=== PATIENT | female | born 1965 | race Caucasian/White ===

== ENCOUNTER → 2019-04-25 10:44 | Outpatient (CLI) | payer OTHER, SELFPAY ==
--- NOTE | 2019-04-25 10:48 | DI.MG.S_ITS ---
BILATERAL DIGITAL SCREENING MAMMOGRAM 3D/2D WITH CAD: 04/25/2019 CLINICAL: Routine screening. Comparison is made to exams dated: 05/18/2017 mammogram - [facility], 07/18/2014 stereotactic biopsy, and 07/10/2014 mammogram - [facility]. The tissue of both breasts is heterogeneously dense. This may lower the sensitivity of mammography. Current study was also evaluated with a Computer Aided Detection (CAD) system. There is a benign biopsy clip in the left breast. No significant masses, calcifications, or other findings are seen in either breast. There has been no significant interval change. IMPRESSION: NEGATIVE There is no mammographic evidence of malignancy. A 1 year screening mammogram is recommended. This exam was interpreted at Station ID: [id number]. NOTE: For mammograms, a report in lay terms will be sent to the patient. Approximately 15% of breast malignancies will not be visualized mammographically. In the management of a palpable breast mass, a negative mammogram must not discourage biopsy of a clinically suspicious lesion. Electronically Signed By: Sharyn rebollar/ronaldo:04/25/2019 11:31:02 letter sent: Normal Exam ACR BI-RADS Category 1: Negative 3341F
== END ==
PROVIDERS: PCP Physician Assistant; Visit Provider Physician Assistant
DX: Z12.31 Encounter for screening mammogram for malignant neoplasm of breast (principal)
CPT/HCPCS: 77063; 77067

== ENCOUNTER → 2020-04-26 08:56 | Outpatient (CLI) | payer OTHER, SELFPAY ==
[2020-04-26 09:32] LABS: Add Manual Diff / Slide Review NO; Basophils Absolute Auto 0 /uL (0-100); Basophils Percent Auto 0.6 % (0-2); Eosinophils Absolute Auto 200 /uL (0-450); Eosinophils Percent Auto 2.3 % (2-4); Hematocrit 41.8 % (36-46); Hemoglobin 14.3 g/dL (12.0-16.0); Lymphocytes Absolute Auto 1700 /uL (1100-4500); Lymphocytes Percent Auto 25.1 % (25-40); Mean Corpuscular HGB Conc 34.2 % (30-36); Mean Corpuscular Hemoglobin 29.4 PG (26-34); Monocytes Absolute Auto 500 /uL (0-900); Neutrophils Absolute Auto 4300 /uL (1500-7000); Platelet Count 220 X10^3/uL (150-400); Red Blood Cell Count 4.86 X10^6/uL (4.0-5.2); Red Cell Distribution Width 12.7 % (11.6-14.8); White Blood Cell Count 6.8 X10^3/uL (4.5-11.0)
[2020-04-26 10:10] LABS: Free T3, Triiodothyronine Free 3.83 pg/mL (2.77-5.27); Free T4, Direct Thyroxine 0.95 ng/dL (0.78-2.19)
[2020-04-26 10:24] LABS: Thyroid Stimulating Hormone 1.76 uIU/mL (0.47-4.68)
== END ==
PROVIDERS: PCP Nurse Practitioner; Referring Provider Nurse Practitioner; Visit Provider Nurse Practitioner
DX: E03.9 Hypothyroidism, unspecified (principal); E78.5 Hyperlipidemia, unspecified; I10 Essential (primary) hypertension
CPT/HCPCS: 36415; 84439; 84443; 84481; 85025

== ENCOUNTER → 2020-05-03 08:52 | Outpatient (CLI) | payer OTHER, SELFPAY ==
--- NOTE | 2020-05-03 08:53 | DI.US.S_ITS ---
PROCEDURE: US PELVIC COMPLETE INDICATIONS: UTERINE PROLAPSE TECHNIQUE: Real-time scanning was performed of the pelvic organs, with image documentation. Additional endovaginal scanning was necessary due to incomplete visualization of the adnexal and endometrial structures by transabdominal scanning. COMPARISON: None. FINDINGS: Transabdominal scanning: Limited scanning through the kidneys shows no hydronephrosis. No pathologic free abdominal or pelvic fluid. Endovaginal scanning: Uterus: Uterus is normal in size at 6.5 x 4.0 x 4.7 cm. The endometrium measures one mm in combined thickness. Right posterior subserosal fibroid measuring 2.0 x 1.5 x 1.8 cm Ovaries: Right ovary measures 3.6 x 1.5 x 1.0 cm. Left ovary measures 2.8 x 1.5 x 1.4 cm. The ovaries are unremarkable bilaterally. IMPRESSION: Uterine fibroid Dictated by: Brett Forrest M.D. on 05/03/2020 at 12:47 Approved by: Brett Forrest M.D. on 05/03/2020 at 12:50
== END ==
PROVIDERS: PCP Nurse Practitioner; Referring Provider Nurse Practitioner; Visit Provider Nurse Practitioner
DX: N81.4 Uterovaginal prolapse, unspecified (principal); D25.2 Subserosal leiomyoma of uterus
CPT/HCPCS: 76830; 76856

== ENCOUNTER → 2020-06-08 15:34 | Outpatient (CLI) | payer OTHER, SELFPAY ==
[2020-06-09 18:23] LABS: COVID19 Sendout Not Detected (Not Detect)
== END ==
PROVIDERS: PCP Nurse Practitioner; Visit Provider Physician Assistant
DX: Z11.59 Encounter for screening for other viral diseases (principal)
CPT/HCPCS: 87635

== ENCOUNTER 2020-06-11 07:52 | Day surgery (SDC) | payer OTHER, SELFPAY ==
[2020-06-11] VITALS (8 sets, daily range): BP systolic 105–142; BP diastolic 73–99; PULSE 62–71; RESP 12–20; TEMP 35.7–36.6; O2SAT 96–100; BMI 25.4
--- NOTE | 2020-06-11 08:28 | PM.HP.1 ---
History of Present Illness History of Present Illness Date Patient Seen: 06/11/20 Time Patient Seen: 08:28 Chief complaint: SDC Narrative: The patient presents for colorectal sreening. They have never had any previous examination for such. No personal or family history of colon cancer. On further history denies any recent gastrointestinal symptoms. No nausea, vomiting, abdominal pain, loss of appetite, unexplained weight loss, change in bowel habits, diarrhea, constipation, melena, hematochezia, or bright red blood per rectum. Patient History Medical History (Updated 05/31/20 @ 16:13 by JOSEFINA Vivas) Colon cancer screening (Acute) Cystocele (Acute) Encounter for well woman exam with abnormal findings (Acute) Hyperlipidemia (Chronic) Hypertension (Chronic) Rosacea (Chronic 1999) Urinary frequency (Acute) Uterine prolapse (Acute) Surgical History Anesthesia (Resolved) History of appendectomy (Resolved) History of excision of mass (Resolved 2016) Family & Social History Family History Father No problems noted. Mother No problems noted. Brother No problems noted. Tobacco & Substance use: Smoking Status Never smoker alcohol intake former Meds Home Medications and Allergies Home Medications Medication Instructions Recorded Confirmed Type [Blood pressure cuff] ea #1 09/14/17 04/26/20 Rx multivitamin [Multiple Vitamins] 1 tab PO QDAY #0 09/14/17 05/29/20 History amlodipine 10 mg tablet 10 mg PO Q DAY #90 tab 12/22/19 05/29/20 Rx minocycline 100 mg tablet 100 mg PO DAILY #90 tab 01/31/20 05/29/20 Rx aspirin 81 mg tablet,delayed 81 mg PO 3XW PRN #0 tab 04/26/20 05/29/20 History release irbesartan 75 mg tablet 75 mg PO DAILY #90 tab 05/28/20 05/29/20 Rx Allergies Allergy/AdvReac Type Severity Reaction Status Date / Time No Known Allergies Allergy Uncoded 05/29/20 15:01 Review of Systems Review of Systems Narrative: A 10 point review of systems is negative except as noted in the HPI Exam Narrative Exam Narrative: General-no acute distress, well nourished HEENT-moist mucous membranes, no scleral icterus Neck-supple, no lymphadenopathy Chest- non labored respirations, clear to auscultation bilaterally Cardiac-regular rate no peripheral edema Abdomen-soft, nontender, non distended Extremities-warm, well perfused Neurological-alert and oriented, no focal deficits Assessment & Plan Assessment and plan (1) Colon cancer screening: Status: Acute Assessment & Plan narrative: The patient requires colorectal screening and colonoscopy is recommended. Technical details were discussed. Risks, benefits, alternatives explained. Risks including but not limited to myocardial infarction, aspiration, bleeding, pain, missed lesion, incomplete examination, need for further radiographic studies, colonic perforation, and need for major abdominal surgery were discussed. All questions were answered to their satisfaction, and they are in agreement with this plan.
[2020-06-11] MEDS: LACTATED RINGERS 1,000 ML 200 ML IV (08:35)
[2020-06-11] MEDS: MIDAZOLAM 5 MG/5 ML VIAL IV (08:50)
[2020-06-11] MEDS: fentaNYL 250 MCG/5 ML INJ IV (08:51)
--- NOTE | 2020-06-11 08:57 | PM.OP.ENDO ---
Operative Date/Time/Diagnoses Date of procedure: 06/11/20 Time of procedure: 08:57 Pre-op diagnosis: Screening colonoscopy Post-op diagnosis: same Procedure & Clinicians Study performed: Incomplete colonoscopy Same procedure as scheduled: Yes Indications: 55-year-old woman no prior colonoscopy presents for routine screening Procedure Notes SCOAP/Timeout: Performed Procedure in detail: Patient placed in left lateral recumbent position. Time out was performed. Procedural sedation was administered with Versed and Fentanyl. Examination began with a thorough inspection of the perianal area there was no evidence of fissures, fistulae, external hemorrhoids or cutaneous malignancy. The colonoscopy scope was then placed into the rectum the the lumen was insufflated with air. The scope was carefully advanced forward at the quality of the preparation was extremely poor and despite irrigating I was unable to adequately visualize wall colon. Procedure was aborted. Sedation minutes: 6 Specimen(s): none sent Complications: none Impression: Incomplete colonoscopy Post-procedure Recommendations: Other recommendation (Will need adequate preparation prior to next colonoscopy) Disposition: same day surgery
--- NOTE | 2020-06-11 09:24 | SUR.PHASEII ---
Drowsy, is having a procedure after her, so she wants to wait so that the ride can be called to take both of them home at the same time. She has water and is otherwise comfortable. Call light given.
--- NOTE | 2020-06-11 10:18 | SUR.PHASEII ---
Pt sleeping, resp unlabored.
== END 2020-06-11 10:55 | disposition home or self-care (01) ==
PROVIDERS: PCP Nurse Practitioner; Referring Provider Nurse Practitioner; Visit Provider Surgery
PROC: 0DJD8ZZ Inspection of Lower Intestinal Tract, Via Natural or Artificial Opening Endoscopic (ICD-10-PCS; CPT 45378; principal; 2020-06-11 09:15)
DX: Z12.11 Encounter for screening for malignant neoplasm of colon (principal); Z53.09 Procedure and treatment not carried out because of other contraindication
CPT/HCPCS: 45378; J2250; J3010

== ENCOUNTER → 2020-07-06 10:45 | Outpatient (CLI) | payer OTHER, SELFPAY ==
--- NOTE | 2020-07-06 11:15 | DI.ECHO.S_ITS ---
Patient Name: JOSE ROBERTO HOWELL date: 1965 Sex: F Attending Physician: Sang Indications: Date: 07/06/2020 10:48 At the request of: NINA WAYNE Procedure: MM screening mammo BI BILATERAL DIGITAL SCREENING MAMMOGRAM 3D/2D WITH CAD: 07/06/2020 CLINICAL: Routine screening. Comparison is made to exams dated: 04/25/2019 mammogram, 05/18/2017 mammogram - [facility], and 07/10/2014 mammogram - [facility]. The tissue of both breasts is heterogeneously dense. This may lower the sensitivity of mammography. Current study was also evaluated with a Computer Aided Detection (CAD) system. There is a biopsy clip in the left breast. No significant masses, calcifications, or other findings are seen in either breast. There has been no significant interval change. IMPRESSION: NEGATIVE There is no mammographic evidence of malignancy. A 1 year screening mammogram is recommended. This exam was interpreted at Station ID: [id number]. NOTE: For mammograms, a report in lay terms will be sent to the patient. Approximately 15% of breast malignancies will not be visualized mammographically. In the management of a palpable breast mass, a negative mammogram must not discourage biopsy of a clinically suspicious lesion. Electronically Signed By: Lefty Dyer M.D., jr/ronaldo:07/06/2020 13:58:56 letter sent: Normal Exam ACR BI-RADS Category 1: Negative 3341F
== END ==
PROVIDERS: PCP Nurse Practitioner; Referring Provider Nurse Practitioner; Visit Provider Nurse Practitioner
DX: Z12.31 Encounter for screening mammogram for malignant neoplasm of breast (principal)
CPT/HCPCS: 77063; 77067

== ENCOUNTER → 2020-07-13 10:02 | Outpatient (CLI) | payer OTHER, SELFPAY ==
[2020-07-16 10:02] LABS: COVID19 Sendout Not Detected (Not Detect)
== END ==
PROVIDERS: PCP Nurse Practitioner; Visit Provider Physician Assistant
DX: Z11.59 Encounter for screening for other viral diseases (principal)
CPT/HCPCS: 87635

== ENCOUNTER 2020-07-16 09:09 | Day surgery (SDC) | payer OTHER, SELFPAY ==
[2020-07-16] MEDS: LACTATED RINGERS 1,000 ML 200 ML IV ×2 (09:41→10:07)
[2020-07-16 09:44] VITALS: BP 139/86; PULSE 64; RESP 13; TEMP 36.8; O2SAT 99; BMI 25.7
--- NOTE | 2020-07-16 10:26 | P.HP_ITS ---
History of Present Illness History of Present Illness Date Patient Seen: 07/16/20 Time Patient Seen: 10:26 Chief complaint: [facility] [place] [facility] [place]arrative: 07/16-No interval changes in health. 06/11/20-The patient presents for colorectal sreening. They have never had any previous examination for such. No personal or family history of colon cancer. On further history denies any recent gastrointestinal symptoms. No nausea, vomiting, abdominal pain, loss of appetite, unexplained weight loss, change in bowel habits, diarrhea, constipation, melena, hematochezia, or bright red blood per rectum. Patient History Medical History (Updated 05/31/20 @ 16:13 by JOSEFINA Vivas) Colon cancer screening (Acute) Cystocele (Acute) Encounter for well woman exam with abnormal findings (Acute) Hyperlipidemia (Chronic) Hypertension (Chronic) Rosacea (Chronic 1999) Urinary frequency (Acute) Uterine prolapse (Acute) Surgical History Anesthesia (Resolved) History of appendectomy (Resolved) History of excision of mass (Resolved 2016) Family & Social History Family History Father No problems noted. Mother No problems noted. Brother No problems noted. Social History: household members spouse Tobacco & Substance use: Smoking Status Never smoker alcohol intake former Substance Use Type does not use Meds Home Medications and Allergies Home Medications Medication Instructions Recorded Confirmed Type [Blood pressure cuff] ea #1 09/14/17 04/26/20 Rx multivitamin [Multiple Vitamins] 1 tab PO QDAY #0 09/14/17 07/16/20 History minocycline 100 mg tablet 100 mg PO DAILY #90 tab 01/31/20 07/16/20 Rx aspirin 81 mg tablet,delayed 81 mg PO 3XW #0 tab 04/26/20 05/29/20 History release irbesartan 75 mg tablet 75 mg PO DAILY #90 tab 05/28/20 07/16/20 Rx Allergies Allergy/AdvReac Type Severity Reaction Status Date / Time No Known Allergies Allergy Uncoded 07/16/20 09:36 Review of Systems Review of Systems Narrative: A 10 point review of systems is negative except as noted in the HPI Exam Vital Signs (past 8 hours): - 07/16/20 09:44 Temperature 98.2 F Pulse Rate 64 Respiratory Rate 13 Blood Pressure 139/86 Pulse Oximetry 99 Oxygen Delivery Method Room Air Narrative Exam Narrative: General-no acute distress, well nourished HEENT-moist mucous membranes, no scleral icterus Neck-supple, no lymphadenopathy Chest- non labored respirations, clear to auscultation bilaterally Cardiac-regular rate no peripheral edema Abdomen-soft, nontender, non distended Extremities-warm, well perfused Neurological-alert and oriented, no focal deficits Assessment & Plan Assessment and plan (1) Colon cancer screening: Status: Acute Assessment & Plan narrative: The patient requires colorectal screening and colonoscopy is recommended. Technical details were discussed. Risks, benefits, alternatives explained. Risks including but not limited to myocardial infarction, aspiration, bleeding, pain, missed lesion, incomplete examination, need for further radiographic studies, colonic perforation, and need for major abdominal surgery were discussed. All questions were answered to their satisfaction, and they are in agreement with this plan. COVID-19 COVID-19 status: Negative
[2020-07-16] MEDS: fentaNYL 250 MCG/5 ML INJ IV (10:38)
[2020-07-16] MEDS: MIDAZOLAM 5 MG/5 ML VIAL IV (10:38)
--- NOTE | 2020-07-16 10:58 | PM.OP.ENDO ---
Operative Date/Time/Diagnoses Date of procedure: 07/16/20 Time of procedure: 10:58 Pre-op diagnosis: screening colonoscopy Post-op diagnosis: same Procedure & Clinicians Study performed: Colonoscopy Same procedure as scheduled: Yes Indications: 55-year-old woman here for a 1st routine screening colonoscopy Surgeon: Tony Tolentino Procedure Notes SCOAP/Timeout: Performed Procedure in detail: Patient placed in left lateral recumbent position. Time out was performed. Procedural sedation was administered with Versed and Fentanyl. Examination began with a thorough inspection of the perianal area there was no evidence of fissures, fistulae, external hemorrhoids or cutaneous malignancy. The colonoscopy scope was then placed into the rectum the the lumen was insufflated with air. The scope was carefully advanced forward. Ultimately the cecum was intubated and confirmed by identification of the ileocecal valve, the appendiceal orifice and the confluence of the taenia. The scope was then slowly withdrawn examining colon thoroughly in all directions. In the rectum the rectal columns were identified and retroflexion of the scope was performed for inspection of the distal rectum and anal canal. The colonoscopy was notable for the followin. Quality of the preparation-excellent 2. No masses polyps 3. Sigmoid diverticulosis Scope withdrawal time: 7 Sedation minutes: 20 Findings: diverticulosis Specimen(s): none sent Complications: none Impression: Normal colonoscopy Post-procedure Recommendations: Colonscopy in 10 years and High fiber diet Disposition: same day surgery
[2020-07-16 11:01] VITALS: BP 121/84; PULSE 68; RESP 14; TEMP 36.3; O2SAT 98
[2020-07-16 11:06] VITALS: BP 111/80; PULSE 69; RESP 12; O2SAT 99
[2020-07-16 11:11] VITALS: BP 112/79; PULSE 69; RESP 10; O2SAT 98
[2020-07-16 11:16] VITALS: BP 112/80; PULSE 64; RESP 12; TEMP 36.7; O2SAT 100
[2020-07-16 11:51] VITALS: BP 121/72; PULSE 70; RESP 16; TEMP 36.8; O2SAT 100
== END 2020-07-16 11:52 | disposition home or self-care (01) ==
PROVIDERS: PCP Nurse Practitioner; Referring Provider Surgery; Visit Provider Surgery
PROC: 0DJD8ZZ Inspection of Lower Intestinal Tract, Via Natural or Artificial Opening Endoscopic (ICD-10-PCS; CPT 45378; principal; 2020-07-16 10:45)
DX: Z12.11 Encounter for screening for malignant neoplasm of colon (principal); I10 Essential (primary) hypertension; E78.5 Hyperlipidemia, unspecified; K57.30 Diverticulosis of large intestine without perforation or abscess without bleeding
CPT/HCPCS: 45378; 99152; J2250; J3010

== ENCOUNTER → 2021-04-29 09:52 | Outpatient (CLI) | payer OTHER, SELFPAY ==
[2021-04-29 11:14] LABS: Hematocrit 41.5 % (36-46); Hemoglobin 13.6 g/dL (12.0-16.0); Mean Corpuscular HGB Conc 32.8 % (30-36); Mean Corpuscular Hemoglobin 28.3 PG (26-34); Mean Corpuscular Volume 86.1 fL (80-100); Platelet Count 199 X10^3/uL (150-400); Red Blood Cell Count 4.81 X10^6/uL (4.0-5.2); Red Cell Distribution Width 13.4 % (11.6-14.8); White Blood Cell Count 5.8 X10^3/uL (4.5-11.0)
[2021-04-29 11:56] LABS: Alanine Aminotransferase 27 IU/L (<35); Albumin 4.4 g/dL (3.5-5.0); Albumin Globulin Ratio 1.4 (1.0-2.8); Alkaline Phosphatase 49 U/L (38-126); Aspartate Aminotransferase 28 IU/L (14-36); Bilirubin Total 0.4 mg/dL (0.2-1.3); Blood Urea Nitrogen 20 mg/dL (7-17); Calcium 8.7 mg/dL (8.4-10.2); Carbon Dioxide 26 mmol/L (22-32); Chloride 105 mmol/L (98-107); Estimated Glomerular Filt Rate > 60.0 mL/min (>60); Globulin 3.1 g/dL (1.7-4.1); Glucose 92 mg/dL (70-100); HDL Cholesterol 73 mg/dL (40-60); HEMOLYSIS < 15 (0-50); Potassium 3.6 mmol/L (3.4-5.1); Sodium 139 mmol/L (137-145); Total Protein 7.5 g/dL (6.3-8.2); Triglycerides 102 mg/dL (35-150)
[2021-04-29 12:04] LABS: Cholesterol 442 mg/dL (140-199); LDL Cholesterol Calculated 349 mg/dL (<100)
[2021-04-29 12:05] LABS: Microalbumin Urine Random < 0.6 mg/dL (0-1.6)
[2021-04-29 12:16] LABS: Free T3, Triiodothyronine Free 3.59 pg/mL (2.77-5.27); Free T4, Direct Thyroxine 0.76 ng/dL (0.78-2.19)
[2021-04-29 12:29] LABS: Thyroid Stimulating Hormone 4.35 uIU/mL (0.47-4.68)
== END ==
PROVIDERS: PCP Nurse Practitioner; Referring Provider Nurse Practitioner; Visit Provider Nurse Practitioner
DX: E78.5 Hyperlipidemia, unspecified (principal); I10 Essential (primary) hypertension
CPT/HCPCS: 36415; 80053; 80061; 82043; 82570; 84439; 84443; 84481; 85027

== ENCOUNTER → 2021-10-09 16:07 | Outpatient (CLI) | payer OTHER, SELFPAY ==
[2021-10-09 16:46] LABS: COVID19 -Nasal RAPID Negative (Negative)
== END ==
PROVIDERS: PCP Nurse Practitioner; Referring Provider Obstetrics & Gynecology; Visit Provider Obstetrics & Gynecology
DX: Z01.812 Encounter for preprocedural laboratory examination (principal); Z20.822 Contact with and (suspected) exposure to COVID-19
CPT/HCPCS: 87635

== ENCOUNTER 2021-10-10 06:25 | Day surgery (SDC) | payer OTHER, SELFPAY ==
[2021-10-09 08:49] VITALS: BMI 25.7
[2021-10-10] VITALS (18 sets, daily range): BP systolic 110–155; BP diastolic 78–110; PULSE 67–84; RESP 8–68; TEMP 36.2–37.6; O2SAT 95–100; BMI 25.7
[2021-10-10] MEDS: LACTATED RINGERS 1,000 ML 100 ML IV ×3 (07:36→20:24)
--- NOTE | 2021-10-10 07:48 | PM.PREOP ---
Pre-operative Note COVID-19 COVID-19 status: Negative Result date/Date tested (Pos, Neg/Pending): 10/09/21 Interval Note History & Physical reviewed/Exam performed by Physician: Yes Changes to H&P: No H&P completed within 30 days and has changed as indicated here:: 10/09/21
[2021-10-10] MEDS: CEFAZOLIN 2 GM/20 ML SYRINGE IV (08:08)
[2021-10-10] MEDS: BUPIVACAINE 0.25% (PF) 30 ML, EPINEPHrine 0.15 MG INJ (08:26)
--- NOTE | 2021-10-10 08:34 | SUR.OPER ---
Lithotomy on padded OR bed, head on pillow, arms secured on padded arm boards at <90 degrees abduction. Legs secured in padded yellow fins stirrups. Gel pad placed between patients posterior thigh and urinary catheter tubing.
--- NOTE | 2021-10-10 09:51 | PM.GYNOP.1 ---
Operative Date/Time/Diagnoses Date of procedure: 10/10/21 Time of procedure: 09:51 Pre-op diagnosis: Symptomatic cystocele and rectocele Post-op diagnosis: same Procedure & Clinicians Procedure: Procedures Operation Date: 10/10/21 07:45 Actual Procedure Side Surgeon p Anterior/Posterior Repair Lashell Wiggins MD Indications: Symptomatic cystocele and rectocele Surgeon: Lashell Wiggins Refrigeration Service Technician: Chuck Guevara Anesthesia Type: General and Local Operative Notes Findings: Third degree cystocele Third degree rectocele Closure Type: primary Specimen(s): none Applied: catheter Estimated blood loss (mL): 10 Blood products transfused: none Procedure in detail: 2 Allis clamps were placed at the apex of the cystocele. 6 mL of half percent Marcaine with epinephrine were injected and an incision was made with a #10 blade between the 2 Allis clamps. Wide Allis clamps were placed on the midline of the cystocele approximately 5. The mucosa was undermined using the Metzenbaum scissors and the mucosa incised in the midline moving the wide Allis clamps to the edges of the mucosa. The mucosa was dissected off the underlying fascia using an open moistened Ray-Kali and a #10 blade. The fascia was reapproximated with 0 Vicryl with a series of horizontal mattress sutures. The excess vaginal mucosa was excised. The mucosa was closed using simple interrupted sutures with 2-0 Vicryl including the underlying fascia to close the space. The weighted speculum was removed from the vagina. Allis clamps were placed at the mucocutaneous junction at the introitus. 6 mL of half percent Marcaine with epinephrine were injected. An incision was made with a #10 blade between the 2 Allis clamps, and a triangular piece of skin and underlying subcutaneous tissue was removed. Allis clamps were placed in the midline of the rectocele. 10 mL of half percent Marcaine with epinephrine were injected submucosally. The mucosa was undermined using the Metzenbaum scissors and the mucosa incised in the midline, moving the wide Allis clamps to the mucosal edges. The underlying fascia was dissected off of the mucosa using an open moistened Ray-Kali and a #10 blade. The fascia was reapproximated using 0 Vicryl with a series of horizontal mattress sutures. The excess vaginal mucosa was excised. The mucosa was closed using a series of simple interrupted sutures with 2-0 Vicryl including the underlying fascia to close the space. On the perineum 0 Vicryl was used to reapproximate the levator muscle. The subcutaneous layer was closed with 2-0 Vicryl. The skin was closed with 3-0 chromic in a subcuticular fashion. Hemostasis was achieved. A Betadine moistened vaginal pack was placed into the vagina. A rectal exam was done and there were no sutures palpable in the rectum. The urine was clear. Sponge, lap, and instrument counts were correct x-2. The patient tolerated the procedure well, was taken to PACU in stable condition.m Complications: none Post-operative Condition: stable Disposition: PACU Plan for aftercare: To Acute Care after recovery
[2021-10-10] MEDS: fentaNYL 100 MCG/2 ML INJ IV ×2 (10:12→10:32)
[2021-10-10] MEDS: ONDANSETRON 4 MG/2 ML INJ IV (10:12)
[2021-10-10] MEDS: HYDROMORPHONE 2 MG INJ IV (10:47)
[2021-10-10] MEDS: OXYCODONE IR 5 MG TABLET PO ×5 (10:51→23:59)
[2021-10-10] MEDS: ACETAMINOPHEN 325 MG TABLET 650 MG PO ×3 (11:12→23:59)
--- NOTE | 2021-10-10 11:48 | SUR.PHASEI ---
REPORT GIVEN TO ROSENDO ISLAS RN. PATIENT TRANSFER TO 204 WITHOUT S/SX'S OF DISTRESS. ALL QUESTIONS ANSWERED TO SATISFACTION.
[2021-10-10] MEDS: KETOROLAC 30 MG/ML VIAL IV ×2 (12:25→19:58)
--- NOTE | 2021-10-10 13:48 | PC.NURSE ---
Addendum entered by Lashell Espino R.N. 10/10/21 17:17: Satisfactory post op course. Pt ambulated in hallway x 2 w/staff w/o incidence. IVF continue as per orders MD in to see, orders for D/C gaspar & packing @ 0600 received, will pass on in report. Gaspar cath patent clear urine. Call light w/in reach, pt calls appropriately for needs. Continue w/plan of care Original Note: Pt arrived from PACU alert/awake. Lungs clear, IVF infusing as per orders. Med for discomfort shortly after arrival w/fair relief. Call light w/in reach, bed alarm on for pt safety.
[2021-10-10] MEDS: IBUPROFEN 600 MG TABLET PO (14:05)
[2021-10-10 15:59] LABS: Estimated Glomerular Filt Rate > 60.0 mL/min (>60)
[2021-10-10] MEDS: DOCUSATE 100 MG CAPSULE 200 MG PO (20:23)
[2021-10-11] VITALS: BP 106/73; PULSE 70; RESP 14; TEMP 36.1; O2SAT 100
[2021-10-11] MEDS: KETOROLAC 30 MG/ML VIAL IV ×2 (01:55→08:17)
[2021-10-11 04:30] VITALS: BP 105/72; PULSE 83; RESP 12; TEMP 37.2; O2SAT 99
[2021-10-11] MEDS: ACETAMINOPHEN 325 MG TABLET 650 MG PO (05:23)
[2021-10-11] MEDS: OXYCODONE IR 5 MG TABLET PO (05:23)
--- NOTE | 2021-10-11 06:27 | PC.NURSE ---
0600 Medicated with 5 mg. of Oxycodone & 650 mg. of PO Tylenol, prior removal of her vaginal packing & gaspar catheter. Tolerated procedure well, saline locked her IVF & leave IV access in placed. Drinking lots of water & denies any nausea all shift. Requested to take shower & reported I'll be okay in the shower. Denies any dizziness, will cont. POC & monitor.
[2021-10-11] MEDS: DOCUSATE 100 MG CAPSULE 200 MG PO (08:17)
[2021-10-11] MEDS: LOSARTAN 25 MG TABLET PO (08:17)
[2021-10-11] MEDS: SODIUM CHLORIDE 0.9% FLUSH 10 ML IV (08:18)
[2021-10-11 08:56] LABS: Add Manual Diff / Slide Review NO; Basophils Absolute Auto 0 /uL (0-100); Basophils Percent Auto 0.3 % (0-2); Eosinophils Absolute Auto 0 /uL (0-450); Eosinophils Percent Auto 0.3 % (2-4); Hematocrit 38.3 % (36-46); Hemoglobin 12.8 g/dL (12.0-16.0); Lymphocytes Absolute Auto 2200 /uL (1100-4500); Lymphocytes Percent Auto 16.8 % (25-40); Mean Corpuscular HGB Conc 33.4 % (30-36); Mean Corpuscular Hemoglobin 28.2 PG (26-34); Mean Corpuscular Volume 84.5 fL (80-100); Monocytes Absolute Auto 900 /uL (0-900); Monocytes Percent Auto 6.5 % (3-14); Neutrophils Absolute Auto 9900 /uL (1500-7000); Neutrophils Percent Auto 76.1 % (50-75); Platelet Count 245 X10^3/uL (150-400); Red Blood Cell Count 4.54 X10^6/uL (4.0-5.2); Red Cell Distribution Width 14.1 % (11.6-14.8); White Blood Cell Count 13.1 X10^3/uL (4.5-11.0)
[2021-10-11 09:13] VITALS: BP 128/91; PULSE 82; RESP 16; TEMP 36.5; O2SAT 99
--- NOTE | 2021-10-11 11:22 | CM.DANOTE ---
Patient is 56yo Female admitted for cystocele rectocele performed by Dr. Wiggins. Patient resides at home with her spouse. Patient reported only 2 stairs to access home which she does not anticipate having assist needs for. Patient is fully independent at baseline. Patient was fully dressed and had showered independently prior to assessment. Patient stated she is hopeful to discharge home and requested her IV be removed which was passed along to assigned nurse. Dr. Wiggins intends to discharge today and went in to meet with patient as assessment concluded. P: patient is anticipated to discharge home. No identified discharge planning needs noted. Spouse is transportation home. Ins: [facility] Discharge Planning/Care Management CM Discharge Assessment Start: 10/11/21 11:19 Freq: Status: Active Protocol: Document 10/11/21 11:19 (Rec: 10/11/21 11:21 [id number]) Discharge Planning Assessment Assigned Patient Manager [facility] DPOA/Assigned Designee Name Spouse Simon Contact Information [phone] Advance Directives? No Advance Directives on File No History Provided By Patient,Medical Record Has Patient been admitted in last 30 No days? Prior Living Arrangements House Household Members spouse Type of transporation used prior to Drives own vehicle admit Independent with ADL's Yes Is patient alert and oriented? Yes Caregiver for Another No Barriers to Discharge No Discharge Plan Home Transportation Arrangement spouse Simon Referrals Initiated None needed Whiteboard Updated in Patient Room with Yes name and ext. 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 Required No Height 162.56 cm Weight 68.039 kg Body Mass Index (BMI) 25.7 Barriers to Learning None Hx Anesthesia Reactions No Hx Family Anesthesia Reaction No Hx Malignant Hyperthermia No Hx Blood Transfusion Reaction No Anesthesia Review Requested No Customer Support Professional No alcohol intake former Smoking Status Never smoker Substance Use Type does not use Patient is completely paralyzed or No completely immobile Mental Status Oriented to own ability Hx Sleep Apnea No CPAP/BIPAP use not prescribed Currently Taking a Beta Michael No Anti-Coagulant Therapy No Has a Storage Receipt Poster No Cardiac Testing No Hx Pacemaker/ICD No Pacemaker Rep Required? No Cardiac Clearance Received Not Applicable Urinary Catheter Present No Hx Urinary Self Catheterization No Diabetes No Patient No Lactating No Presence of External or Internal Medical No Devices Marital Status Lives With spouse Patient Discharge Plan Description Return Home Advance Directives? No
--- NOTE | 2021-10-15 10:12 | P.DS_ITS ---
History of Present Illness History of Present Illness Date Patient Seen: 10/11/21 Time Patient Seen: 09:30 Chief complaint: OPB Narrative: Patient is a 56-year-old postop day # 1 status post anterior and posterior repair. She did well overnight. Pain is well controlled. She is tolerating a diet. The vaginal packing was removed. The patient has been able to void without the catheter. She is ambulating without assistance. She is discharged home on postop day # 1. Discharge Providers Provider Date of admission: 10/10/21 Discharge Date: 10/11/21 Primary care physician: JOSEFINA Vivas Discharge provider: Lashell Wiggins MD Summary Hospital Course Discharge Diagnosis: Symptomatic cystocele and rectocele Repair of cystocele and rectocele Hospital Course: Patient is a 56-year-old who presented on October 10, 2021 for a scheduled anterior and posterior repair. She underwent this procedure without complication. Her postoperative course was unremarkable. On postop day # 1 she was ambulating, tolerating a diet, no nausea vomiting, pain is well controlled, she has been able to void without catheter. She is discharged home on postop day # 1. Status at Discharge Cognitive/behavioral status at discharge: oriented Functional status at discharge: independent ambulation Overall status at discharge: patient is progressing back to baseline Time Spent with Patient Time spent: Less than 30 minutes Exam Vital Signs (past 8 hours): Oxygen Delivery Method Room Air Oxygen Flow Rate 0 Narrative Exam Narrative: Generally: Patient is sitting up in bed, no acute distress Lungs: Clear to auscultation bilaterally Cardiovascular: Regular rate and rhythm Abdomen: Soft and flat. Good bowel sounds. Perineum: Dry Extremities: Negative Homans, no edema Objective Labs Result Diagrams: 10/11/21 08:35 10/10/21 15:33 [facility] Medical History Colon cancer screening Cystocele Encounter for routine adult health examination with abnormal findings Encounter for well woman exam with abnormal findings Hyperlipidemia Hypertension Rosacea (1999) Routine gynecological examination Urinary frequency Uterine prolapse Surgical History Anesthesia History of appendectomy History of excision of mass (2016) Family History Father No problems noted. Mother No problems noted. Brother No problems noted. Social History household members: spouse Smoking Status: Never smoker second hand exposure: No alcohol intake: former substance use type: does not use Discharge Assessment & Plan Assessment and Plan Assessment: Postop day # 1 status post anterior and posterior repair Patient doing very well Plan of Treatment: Discharge to home Follow up in 2 wks Discharge Plan Discharge Plan Patient Disposition: Home Provider Discharge Comment: Call with fever, chills, or bleeding vaginally more than spotting to light Ibuprofen 600 mg every 6 hours as needed, starting 6 last dose of Toradol Tylenol 650 mg every 6 hours Stool softener until bowels returned to normal Discharge orders & Medications Discharge Orders: Discharge (Order); Ordered 10/11/21 Ordered By: Lashell Wiggins Prescriptions: New oxycodone 5 mg tablet 5 mg PO Q4H PRN (Reason: pain) Qty: 20 0RF Continued multivitamin [Multiple Vitamins] 1 EACH tablet 1 tab PO QDAY Qty: 0 0RF aspirin 81 mg tablet,delayed release (DR/EC) 81 mg PO 3XW Qty: 0 0RF minocycline 100 mg tablet See Rx Instructions .ROUTE .COMPLEX Qty: 90 2RF Dose Instruction: TAKE 1 TABLET BY MOUTH DAILY Rx Instructions: TAKE 1 TABLET BY MOUTH DAILY irbesartan 75 mg tablet See Rx Instructions .ROUTE .COMPLEX Qty: 90 3RF Dose Instruction: TAKE 1 TABLET BY MOUTH DAILY FOR HYPERTENSION. GOAL<140/90 Rx Instructions: TAKE 1 TABLET BY MOUTH DAILY FOR HYPERTENSION. GOAL<140/90 naltrexone 50 mg tablet 25 mg PO DAILY Qty: 45 3RF Rx Instructions: Take 1/2 tab daily for appetite suppression Follow up/Referrals: Lashell Wiggins MD [Physician] - 2 Weeks (I believe the patient has an appt 10/24/21) Diet/Activity/Treatments Diet: Regular Activity: No heavy lifting Nothing in the vagina Skin/Wound/Dressing Care Report to your healthcare provider any signs of infection, such as:: chills, fever, increased pain and unusual drainage Visit Report/Discharge Packet Instructions: DI for Cystocele and Rectocele Repair Stand Alone Forms: Surgery Discharge Discharge Data Primary Care Provider: Delicia Domínguez Attending Provider: Lashell Wiggins Quality VTE Deep Vein Thrombosis/Pulmonary Embolism Present on Admission: No
== END 2021-10-11 10:18 | disposition home or self-care (01) ==
LOC: OR 06:28 → AC 06:29
PROVIDERS: PCP Nurse Practitioner; Referring Provider Obstetrics & Gynecology; Visit Provider Obstetrics & Gynecology
DX: N81.11 Cystocele, midline (principal); N81.6 Rectocele; I10 Essential (primary) hypertension; E78.5 Hyperlipidemia, unspecified
CPT/HCPCS: 57260; 36415; 82565; 85025; J0171; J0690; J1100; J1170; J1885; J2405; J2704; J3010

== ENCOUNTER → 2022-06-06 11:28 | Outpatient (CLI) | payer OTHER, SELFPAY ==
[2021-10-10 12:08] VITALS: BMI 25.7
[2022-06-06 11:59] LABS: Hematocrit 41.7 % (36-46); Mean Corpuscular HGB Conc 33.5 % (30-36); Mean Corpuscular Hemoglobin 28.6 PG (26-34); Mean Corpuscular Volume 85.4 fL (80-100); Platelet Count 233 X10^3/uL (150-400); Red Blood Cell Count 4.89 X10^6/uL (4.0-5.2); Red Cell Distribution Width 13.6 % (11.6-14.8); White Blood Cell Count 5.8 X10^3/uL (4.5-11.0)
[2022-06-06 13:20] LABS: Alanine Aminotransferase 18 IU/L (<35); Albumin 4.3 g/dL (3.5-5.0); Albumin Globulin Ratio 1.7 (1.0-2.8); Alkaline Phosphatase 52 U/L (38-126); Aspartate Aminotransferase 23 IU/L (14-36); BUN Creatinine Ratio 31.7 (6-22); Bilirubin Total 0.3 mg/dL (0.2-1.3); Blood Urea Nitrogen 20 mg/dL (7-17); Calcium 8.8 mg/dL (8.4-10.2); Carbon Dioxide 29 mmol/L (22-32); Chloride 102 mmol/L (98-107); Cholesterol 261 mg/dL (140-199); Estimated Glomerular Filt Rate > 60 mL/min (>60); Globulin 2.5 g/dL (1.7-4.1); Glucose 84 mg/dL (70-100); HDL Cholesterol 71 mg/dL (40-60); HEMOLYSIS < 15 (0-50); LDL Cholesterol Calculated 175 mg/dL (<100); Potassium 4.2 mmol/L (3.4-5.1); Sodium 137 mmol/L (137-145); Total Protein 6.8 g/dL (6.3-8.2); Triglycerides 76 mg/dL (35-150)
[2022-06-06 13:33] LABS: Free T3, Triiodothyronine Free 3.38 pg/mL (2.77-5.27)
[2022-06-06 16:03] LABS: Follicle Stimulating Hormone 60.3 mIU/mL
== END ==
PROVIDERS: PCP Nurse Practitioner; Referring Provider Nurse Practitioner; Visit Provider Nurse Practitioner
DX: E78.5 Hyperlipidemia, unspecified (principal); I10 Essential (primary) hypertension; N92.6 Irregular menstruation, unspecified
CPT/HCPCS: 36415; 80053; 80061; 83001; 84439; 84443; 84481; 85027

== ENCOUNTER → 2022-07-19 10:26 | Outpatient (CLI) | payer OTHER, SELFPAY ==
[2021-10-10 12:08] VITALS: BMI 25.7
--- NOTE | 2022-07-19 10:27 | DI.MG.S_ITS ---
BILATERAL DIGITAL SCREENING MAMMOGRAM 3D/2D WITH CAD: 07/19/2022 CLINICAL: Routine screening. Comparison is made to exams dated: 07/06/2020 mammogram, 04/25/2019 mammogram, and 05/18/2017 mammogram - [facility]. Both breasts are heterogeneously dense, which may obscure small masses (category c / 51-75% glandular tissue). Current study was also evaluated with a Computer Aided Detection (CAD) system. There is a biopsy clip in the left breast. No significant masses, calcifications, or other findings are seen in either breast. There has been no significant interval change. IMPRESSION: NEGATIVE There is no mammographic evidence of malignancy. A 1 year screening mammogram is recommended. Based on the Tyrer Cuzick model (a risk assessment model) the patient's lifetime risk is 9.8% and her 10 year risk is 3.0%. According to the ACR, ACS, and NCCN guidelines, an annual breast MRI exam along with mammogram is recommended if the patient's lifetime risk is 20% or greater. This exam was interpreted at Station ID: [id number]. NOTE: For mammograms, a report in lay terms will be sent to the patient. Approximately 15% of breast malignancies will not be visualized mammographically. In the management of a palpable breast mass, a negative mammogram must not discourage biopsy of a clinically suspicious lesion. Electronically Signed By: Sherman cuellar/ronaldo:07/21/2022 08:15:17 letter sent: Normal Exam ACR BI-RADS Category 1: Negative [id number]
== END ==
PROVIDERS: PCP Nurse Practitioner; Referring Provider Nurse Practitioner; Visit Provider Nurse Practitioner
DX: Z12.31 Encounter for screening mammogram for malignant neoplasm of breast (principal)
CPT/HCPCS: 77063; 77067